=== PATIENT | male | born 2000 | race Caucasian/White ===

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

== ENCOUNTER 2021-02-23 02:36 | Emergency (ER) | payer OTHER ==
[~2021-02-23 02:36] MED LIST: BACITRACIN15 GM TOP; IBUPROFEN800 MG PO; NAPROXEN500 MG PO
== END 2021-02-23 03:03 | disposition home or self-care (01) ==
LOC: FER 02:36
DX: F12.929 Cannabis use, unspecified with intoxication, unspecified (principal); F17.210 Nicotine dependence, cigarettes, uncomplicated; Z88.5 Allergy status to narcotic agent
CPT/HCPCS: 99283

== ENCOUNTER 2021-07-27 10:50 | Emergency (ER) | payer OTHER ==
[~2021-07-27] VITALS: Ht 170.2 cm; Wt 77.1 kg
[2021-07-27] MEDS ORDERED: AZITHROMYCIN500 MG PO (11:59)
[2021-07-27] MEDS ORDERED: VITAMIN D250 MCG PO (12:00)
== END 2021-07-27 15:14 | disposition home or self-care (01) ==
LOC: FER 10:50
DX: R19.7 Diarrhea, unspecified (principal); F17.290 Nicotine dependence, other tobacco product, uncomplicated; Z88.5 Allergy status to narcotic agent
CPT/HCPCS: 99283